=== PATIENT | male | born 1975 | race Caucasian/White ===

== ENCOUNTER 2021-01-05 19:04 | Emergency (ER) | payer OTHER ==
[~2021-01-05] VITALS: Ht 172.7 cm; Wt 71.0 kg
== END 2021-01-06 01:20 | disposition home or self-care (01) ==
LOC: ED 19:04
DX: E86.0 Dehydration (principal); R11.2 Nausea with vomiting, unspecified; Z20.822 Contact with and (suspected) exposure to COVID-19
CPT/HCPCS: 74177; 80053; 81001; 83690; 85025; 96361; 99284-25; J2405; J7030; Q9967; U0003